=== PATIENT | female | born 1990 | race African-American/Black ===

== ENCOUNTER 2021-12-30 16:13 | Emergency (ER) | payer OTHER ==
[~2021-12-30] VITALS: Ht 175.3 cm; Wt 88.0 kg
[2021-12-30 17:01] VITALS: BP 114/75
== END 2021-12-30 18:59 | disposition left against medical advice (07) ==
LOC: ER 16:13
DX: Z53.21 Procedure and treatment not carried out due to patient leaving prior to being seen by health care provider (principal)